=== PATIENT | male | born 1935 | race Caucasian/White ===

== ENCOUNTER 2017-02-05 16:03 | Emergency (ER) | payer OTHER, MEDICARE ==
[~2017-02-05] VITALS: Ht 160 cm; Wt 65.8 kg
--- NOTE | 2017-02-05 16:30 | NUR ---
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 +nausea, -vomiting. resp even unlabored. skin warm nondiaphoretic. VSS. NAD noted. able to answer yes/no questions appropriately. in er bed 10.
[2017-02-05 16:36] LABS: BASOPHILS % (AUTO) 0.4 % (0.0-2.0); EOSINOPHILS % (AUTO) 0.2 % (0.0-6.0); HEMATOCRIT 46 % (39-51); HEMOGLOBIN 15.5 g/dL (13.5-17.5); LYMPHOCYTES % (AUTO) 27.6 % (20.0-44.0); MEAN CORPUSCULAR HEMOGLOBIN 30 PG (26.0-33.0); MEAN CORPUSCULAR HGB CONC 34 g/dl (31.0-36.0); MEAN CORPUSCULAR VOLUME 90 fL (80-96); MONOCYTES # (AUTO) 0.3 /CMM (0.1-1.30); NEUTROPHILS # (AUTO) 2.5 /CMM (1.8-8.9); NEUTROPHILS % (AUTO) 63.8 % (43.0-81.0); PLATELET COUNT (AUTO) 94 /CMM (150-450); RDW COEFFICIENT OF VARIATION 12.8 (11.5-15.0); WHITE BLOOD COUNT (AUTO) 3.8 K/uL (4.3-11.0)
[2017-02-05 16:49] LABS: CALCIUM, SERUM 8.8 mg/dL (8.5-10.1); CREATININE 0.9 mg/dL (0.6-1.3); POTASSIUM 3.6 mmol/L (3.5-5.1)
[2017-02-05] MEDS ORDERED: MORPHINE SULFATE INJ 4 MG/ML DISP.SYRIN ONE (16:51)
[2017-02-05] MEDS ORDERED: IV SET PRIMARY 1 EA INFUS.SET MC ONE (16:51)
[2017-02-05] MEDS ORDERED: ONDANSETRON HCL/PF 4 MG/2 ML VIAL ONE (16:51)
[2017-02-05] MEDS ORDERED: IV NS 0.9% 1,000 ML ONE (16:51)
[2017-02-05 16:52] LABS: INR 1.12 (0.87-1.13); PROTHROMBIN TIME 11.8 SECS (9.5-12.7)
[2017-02-05 16:54] LABS: ALBUMIN 3.8 g/dL (3.4-5.0); BILIRUBIN,DIRECT 0.2 mg/dL (0.0-0.2); BILIRUBIN,TOTAL 0.6 mg/dL (0.2-1.0); TOTAL PROTEIN, SERUM 6.9 g/dL (6.4-8.2)
[2017-02-05] MEDS ORDERED: ONDANSETRON HCL/PF 4 MG/2 ML VIAL IV ONE (17:00)
[2017-02-05] MEDS ORDERED: IOHEXOL-300 100 ML VIAL IV ONE (17:00)
[2017-02-05] MEDS ORDERED: IV NS 0.9% 1,000 ML BAG IV ONE (17:00)
[2017-02-05] MEDS ORDERED: MORPHINE SULFATE INJ 2 MG/ML DISP.SYRIN IV ONE (17:00)
[2017-02-05] MEDS ORDERED: IV NS 0.9% 250 ML IV ONE (17:00)
--- NOTE | 2017-02-05 17:03 | NUR ---
PT TRANSPORTED TO CT IN STABLE CONDITION
[2017-02-05 17:24] LABS: BAND % (MANUAL) 9 % (0.0-5.0); LYMPHOCYTES % (MANUAL) 25 % (16-48); MONOCYTES % (MANUAL) 10 % (0-11.0); NEUTROPHILS % (MANUAL) 56 (42-76); PLATELET ESTIMATE DECREASED
--- NOTE | 2017-02-05 18:26 | NUR ---
pt changed and stool sample collected for c diff amplification. sent to lab.
[2017-02-05 18:28] LABS: APPEARANCE,URINE Clear (CLEAR); BILIRUBIN,URINE SMALL (NEGATIVE); BLOOD, URINE Negative Ery/uL (NEGATIVE); COLOR,URINE Yellow (YELLOW); KETONES,URINE Negative (NEGATIVE); LEUKOCYTE ESTERASE ,URINE Negative (NEGATIVE); NITRITE, URINE Negative (NEGATIVE); PH,URINE 5.5 (5.0-8.0); PROTEIN,URINE Trace mg/dl (NEGATIVE); UGLUCOSE Negative (NEGATIVE)
--- NOTE | 2017-02-05 18:31 | NUR ---
Patient discharged to facility in stable condition. Written and verbal after care instructions given. Patient's ambulatory service representative verbalizes understanding of instruction. IV removed. Catheter intact and site benign. Pressure and 4x4 applied to site. No bleeding noted.
[2017-02-05 18:35] VITALS: BP 128/79
[2017-02-05 18:56] LABS: ADD URINE CULTURE NO; BACTERIA,URINE Rare /HPF (None Seen); RBC,URINE 0-2 /HPF (0-2); SQUAMOUS EPITHELIAL CELL,UR Few /HPF (None Seen); WBC,URINE 0-2 /HPF (0-3)
[2017-02-05 18:57] LABS: MUCUS,URINE Few /LPF (None Seen); URINE AMORPHOUS URATE Few /HPF (None Seen)
== END 2017-02-05 18:37 ==
LOC: ER 16:14
DX: E86.0 Dehydration (principal); R19.7 Diarrhea, unspecified; D69.6 Thrombocytopenia, unspecified; K62.89 Other specified diseases of anus and rectum; R53.1 Weakness; R11.10 Vomiting, unspecified; I10 Essential (primary) hypertension; R10.31 Right lower quadrant pain; R10.32 Left lower quadrant pain; F03.90 Unspecified dementia, unspecified severity, without behavioral disturbance, psychotic disturbance, mood disturbance, and anxiety; Z86.73 Personal history of transient ischemic attack (TIA), and cerebral infarction without residual deficits
CPT/HCPCS: 36415; 80048-TC; 80076-TC; 81000-TC; 83605-TC; 83690-TC; 85025-TC; 85730-TC; 87040-TC; A4606; J2270; J2405; J7030; J7050; Q9967; Z7610

== ENCOUNTER 2017-08-08 16:00 | Inpatient (IN) | payer OTHER, MEDICARE ==
[~2017-08-08] VITALS: Ht 165.1 cm; Wt 68.0 kg
--- NOTE | 2017-08-08 16:18 | NUR ---
the patient was placed on ER 16; no acute distress
[2017-08-08 16:36] LABS: BASOPHILS # (AUTO) 0.2 /CMM (0.0-0.2); BASOPHILS % (AUTO) 3.7 % (0.0-2.0); EOSINOPHILS # (AUTO) 0.1 /CMM (0.0-0.7); EOSINOPHILS % (AUTO) 1.6 % (0.0-6.0); HEMATOCRIT 45 % (39-51); HEMOGLOBIN 14.9 g/dL (13.5-17.5); LYMPHOCYTES # (AUTO) 1.7 /CMM (0.8-4.8); LYMPHOCYTES % (AUTO) 34.8 % (20.0-44.0); MEAN CORPUSCULAR HEMOGLOBIN 31 PG (26.0-33.0); MEAN CORPUSCULAR HGB CONC 33 g/dl (31.0-36.0); MEAN CORPUSCULAR VOLUME 92 fL (80-96); MONOCYTES # (AUTO) 0.4 /CMM (0.1-1.30); MONOCYTES % (AUTO) 7.8 % (2.0-12.0); NEUTROPHILS # (AUTO) 2.4 /CMM (1.8-8.9); NEUTROPHILS % (AUTO) 52.1 % (43.0-81.0); PLATELET COUNT (AUTO) 137 /CMM (150-450); RDW COEFFICIENT OF VARIATION 12.9 (11.5-15.0); RED BLOOD CELL COUNT(AUTO) 4.82 MIL/uL (4.5-6.0); WHITE BLOOD COUNT (AUTO) 4.8 K/uL (4.3-11.0)
[2017-08-08] MEDS ORDERED: ASPI-605 PO (16:43)
[2017-08-08] MEDS ORDERED: ATOR40TA PO (16:43)
[2017-08-08] MEDS ORDERED: LISI-603 PO (16:43)
[2017-08-08] MEDS ORDERED: ESCI10TA PO (16:43)
[2017-08-08 16:45] LABS: CALCIUM, SERUM 8.5 mg/dL (8.5-10.1); CARBON DIOXIDE 29 mmol/L (21-32); CHLORIDE 106 mmol/L (98-107); CREATININE 0.9 mg/dL (0.6-1.3); GLUCOSE 111 mg/dL (74-106); POTASSIUM 4.3 mmol/L (3.5-5.1); SODIUM SERUM 140 mmol/L (136-145); UREA NITROGEN, BLOOD 21 mg/dL (7-18)
--- NOTE | 2017-08-08 17:06 | NUR ---
report given to Therese PILLAI
--- NOTE | 2017-08-08 17:09 | NUR ---
M/S 203
[2017-08-08 17:30] VITALS: BP 135/64
--- NOTE | 2017-08-08 17:30 | NUR ---
MS PILLAI Initial Notes: Patient received from ER per MD orders. Patient Maori speaking, alert oriented x1 with periods of confusion. Patient able to understand Slovenian and answer back. Non-labored breathing noted. No signs of distress. No facial grimacing noted. No signs of anxiety. Vital signs wnl. Patient educated on using the call light. IV site, gauge 20 on right arm patent and intact. Patient refused to have full skin assessment. No lacerations, bruising noted on lower extremities or back. Bed in lowest position and is locked. Call light within reach. Will continue to monitor and follow orders.
[2017-08-08] MEDS ORDERED: DOCU-170 PO (19:21)
[2017-08-08] MEDS ORDERED: QUET25TA PO ×2 (19:21)
--- NOTE | 2017-08-08 19:30 | NUR ---
MS RN Closing Notes: Patient resting in bed. Patient Portuguese speaking, alert oriented x1 with periods of confusion. Patient able to understand Korean and answer back. Non-labored breathing noted. No signs of distress. No facial grimacing noted. No signs of anxiety. Patient educated on using the call light. IV site, gauge 20 on right arm patent and intact. Bed in lowest position and is locked. Call light within reach. Bed alarm on. Patient endorsed to next shift
[2017-08-08 19:39] VITALS: BP 125/74
--- NOTE | 2017-08-09 06:29 | NUR ---
MS RN NOTES AWAKE & RESPONSIVE. NOT IN ANY DISTRESS. NO SOB NOTED. DENIES ANY PAIN OR DISCOMFORT AT THIS TIME. WITH IVF INFUSING WELL. AM CARE DONE. MONITORED ACCORDINGLY. CALL LIGHT WITHIN REACH. BED IN LOWEST POSITION. SR UP X 3 FOR SAFETY WITH BED ALARM ON. WILL ENDORSE TO NEXT SHIFT.
--- NOTE | 2017-08-09 07:30 | NUR ---
MS/RN Patient received Patient received from warehouse supervisor 3rd shift. No needs at this time. Receiving IV fluids at 75ml/hr, no signs of infiltration seen. Call light within reach, will continue to monitor and ensure safety.
[2017-08-09 08:00] VITALS: BP 137/78
--- NOTE | 2017-08-09 09:49 | NUR ---
MS/RN Swallow eval Swallow eval in progress at bedside.
--- NOTE | 2017-08-09 10:58 | NUR ---
MS/RN Speech recommendations Speech therapist recommending soft diet. Order changed and lunch tray ordered.
--- NOTE | 2017-08-09 13:41 | NUR ---
MS/RN Diet Tolerating soft diet, no coughing or signs of aspiration.
[2017-08-09 16:00] VITALS: BP 144/94
--- NOTE | 2017-08-09 18:19 | NUR ---
MS/RN End note Tolerating food and liquids without any signs of aspiration. Ambulating around unit with steady gait. No new needs or concerns expressed. Will continue to monitor and endorse to shift commander.
[2017-08-09 20:00] VITALS: BP 133/94
--- NOTE | 2017-08-10 06:49 | NUR ---
MS RN NOTES AWAKE & RESPONSIVE. NOT IN ANY DISTRESS. NO SOB NOTED. DENIES ANY PAIN OR DISCOMFORT AT THIS TIME. WITH IVF INFUSING WELL. AM CARE DONE. MONITORED ACCORDINGLY. CALL LIGHT WITHIN REACH. BED IN LOWEST POSITION. SR UP X 3 WITH BED ALARM ON FOR SAFETY. WILL ENDORSE TO NEXT SHIFT.
--- NOTE | 2017-08-10 07:30 | NUR ---
MS/RN Patient received Patient received from third shift lieutenant. Ambulating around room, no shortness of breath. All needs attended at this time. Will continue to monitor and ensure safety.
[2017-08-10 08:00] VITALS: BP 129/86
--- NOTE | 2017-08-10 08:15 | NUR ---
MS/RN Medications Morning medications administered as ordered.
[2017-08-10 08:27] VITALS: BP 129/86
--- NOTE | 2017-08-10 08:36 | NUR ---
MS/RN Tolerating diet Patient tolerating diet, no coughing or signs of aspiration.
--- NOTE | 2017-08-10 11:10 | NUR ---
MS/RN S/B Dr Bar Seen by Dr Bar - patient to be discharged back to board and care today.
--- NOTE | 2017-08-10 11:35 | NUR ---
MS/manager of loss prevention operations Karan viera made aware that discharge order is in place for patient.
--- NOTE | 2017-08-10 14:18 | NUR ---
MS/electrical maintenance supervisor Patient discharged back to [facility] in stable condition. Heplock and name bands removed. Exit care completed along with copy of medical record. Education provided to microsoft exchange administrator from facility, including when to return to the nearest emergency room and signs and symptom of aspiration. All personal belongings accounted for and signed off on belongings list. Escorted to main lobby.
== END 2017-08-10 14:24 | disposition home or self-care (01) | DRG 57 ==
LOC: ER 16:03 → MEDSG2 18:27
PROVIDERS: ADMIT Internal Medicine; ATTEND Internal Medicine
DX: I69.891 Dysphagia following other cerebrovascular disease (principal); D69.6 Thrombocytopenia, unspecified; F03.90 Unspecified dementia, unspecified severity, without behavioral disturbance, psychotic disturbance, mood disturbance, and anxiety; I10 Essential (primary) hypertension; R79.89 Other specified abnormal findings of blood chemistry; Z79.899 Other long term (current) drug therapy
CPT/HCPCS: 36415; 70450-TC; 71010-TC; 80048-TC; 85025-TC; 87081-TC; 92611-TC; A4606; J7040; Z7610

== ENCOUNTER 2018-03-30 15:11 | Emergency (ER) | payer MEDICARE, OTHER ==
[~2018-03-30] VITALS: Ht 157.5 cm; Wt 77.1 kg
[~2018-03-30 15:11] MED LIST: ASPI-605 PO; ATOR40TA PO; DOCU100C36 PO; ESCI10TA PO; LISI-603 PO; QUET25TA PO
--- NOTE | 2018-03-30 15:11 | NUR ---
bib caregiver c/o r hip pain and discoloration s/p fell off his bed 1 week -KO
--- NOTE | 2018-03-30 16:11 | NUR ---
[facility] [phone] BOARD AND [facility].
[2018-03-30 16:16] LABS: BASOPHILS % (AUTO) 0.9 % (0.0-2.0); EOSINOPHILS % (AUTO) 1.3 % (0.0-6.0); HEMATOCRIT 37 % (39-51); HEMOGLOBIN 12.8 g/dL (13.5-17.5); LYMPHOCYTES # (AUTO) 1.3 /CMM (0.8-4.8); LYMPHOCYTES % (AUTO) 30.2 % (20.0-44.0); MEAN CORPUSCULAR HGB CONC 35 g/dl (31.0-36.0); MEAN CORPUSCULAR VOLUME 90 fL (80-96); MONOCYTES # (AUTO) 0.3 /CMM (0.1-1.30); MONOCYTES % (AUTO) 7.9 % (2.0-12.0); NEUTROPHILS # (AUTO) 2.7 /CMM (1.8-8.9); NEUTROPHILS % (AUTO) 59.7 % (43.0-81.0); PLATELET COUNT (AUTO) 137 /CMM (150-450); RDW COEFFICIENT OF VARIATION 13.3 (11.5-15.0); RED BLOOD CELL COUNT(AUTO) 4.09 MIL/uL (4.5-6.0); WHITE BLOOD COUNT (AUTO) 4.4 K/uL (4.3-11.0)
[2018-03-30] MEDS ORDERED: GUAI237L83 PO (16:18)
[2018-03-30] MEDS ORDERED: MELA5TAB PO (16:18)
--- NOTE | 2018-03-30 16:31 | NUR ---
PT TAKEN TO CT
[2018-03-30 16:43] LABS: CALCIUM, SERUM 8.3 mg/dL (8.5-10.1); CARBON DIOXIDE 31 mmol/L (21-32); CHLORIDE 104 mmol/L (98-107); CREATININE 0.9 mg/dL (0.6-1.3); GLUCOSE 117 mg/dL (74-106); POTASSIUM 4.2 mmol/L (3.5-5.1); SODIUM SERUM 138 mmol/L (136-145); UREA NITROGEN, BLOOD 20 mg/dL (7-18)
[2018-03-30 16:51] LABS: APPEARANCE,URINE Clear (CLEAR); BILIRUBIN,URINE Negative (NEGATIVE); BLOOD, URINE Negative Ery/uL (NEGATIVE); COLOR,URINE Yellow (YELLOW); KETONES,URINE Negative (NEGATIVE); LEUKOCYTE ESTERASE ,URINE Negative (NEGATIVE); NITRITE, URINE Negative (NEGATIVE); PH,URINE 6.5 (5.0-8.0); PROTEIN,URINE Negative (NEGATIVE); UGLUCOSE Negative (NEGATIVE)
[2018-03-30 16:54] LABS: BACTERIA,URINE Rare /HPF (None Seen); RBC,URINE NONE SEEN /HPF (0-2); SQUAMOUS EPITHELIAL CELL,UR Few /HPF (None Seen); WBC,URINE NONE SEEN /HPF (0-3)
--- NOTE | 2018-03-30 17:44 | NUR ---
CALLED [facility] TO COME APPLIED STATISTICIAN PT, ETA 30 MIN
--- NOTE | 2018-03-30 18:49 | NUR ---
Patient discharged to home in stable condition. Written and verbal after care instructions given. Patient verbalizes understanding of instruction.
[2018-03-30 18:51] VITALS: BP 116/80
== END 2018-03-30 18:52 | disposition home or self-care (01) ==
LOC: ER 15:13
DX: S70.01XA Contusion of right hip, initial encounter (principal); F03.90 Unspecified dementia, unspecified severity, without behavioral disturbance, psychotic disturbance, mood disturbance, and anxiety; F32.9 Major depressive disorder, single episode, unspecified; I10 Essential (primary) hypertension; K59.00 Constipation, unspecified; Z86.73 Personal history of transient ischemic attack (TIA), and cerebral infarction without residual deficits; Z79.82 Long term (current) use of aspirin; W06.XXXA Fall from bed, initial encounter; Y93.89 Activity, other specified; Y92.89 Other specified places as the place of occurrence of the external cause; Y99.8 Other external cause status
CPT/HCPCS: 36415; 73502; 80048-TC; 81000-TC; 85025-TC; 87086-TC; A4606; Z7610

== ENCOUNTER 2019-01-26 13:45 | Inpatient (IN) | payer MEDICARE ==
[~2019-01-26] VITALS: Ht 165.1 cm; Wt 72.2 kg
[~2019-01-26 13:45] MED LIST changes: +GUAI237L83 PO; -LISI-603 PO; +MELA5TAB PO
--- NOTE | 2019-01-26 14:20 | NUR ---
patient presented to the ER from board and care due to frequent falls. On room air, breathing evenly and unlabored. connected to the monitor and pulse ox. kept comfortable, will continue to monitor accordingly.
--- NOTE | 2019-01-26 14:35 | NUR ---
CARMITA BARRERA () VERIFIED DNR CODE STATUS WITH ELIO PILLAI VIA TELEPHONE..
[2019-01-26 14:49] LABS: APPEARANCE,URINE Clear (CLEAR); BILIRUBIN,URINE Negative (NEGATIVE); BLOOD, URINE Moderate Ery/uL (NEGATIVE); COLOR,URINE Yellow (YELLOW); KETONES,URINE Trace (NEGATIVE); LEUKOCYTE ESTERASE ,URINE Negative (NEGATIVE); NITRITE, URINE Negative (NEGATIVE); PROTEIN,URINE 30 mg/dl (NEGATIVE); UGLUCOSE Negative (NEGATIVE); UROBILINOGEN,URINE 0.2 EU/dL (0.2)
[2019-01-26 15:03] LABS: BACTERIA,URINE Few /HPF (None Seen); SQUAMOUS EPITHELIAL CELL,UR Few /HPF (None Seen); WBC,URINE 0-2 /HPF (0-3)
[2019-01-26 15:29] LABS: BASOPHILS % (AUTO) 0.3 % (0.0-2.0); EOSINOPHILS % (AUTO) 0.1 % (0.0-6.0); HEMATOCRIT 43 % (39-51); HEMOGLOBIN 14.3 g/dL (13.5-17.5); LYMPHOCYTES % (AUTO) 14.3 % (20.0-44.0); MEAN CORPUSCULAR HGB CONC 33 g/dl (31.0-36.0); MEAN CORPUSCULAR VOLUME 93 fL (80-96); MONOCYTES # (AUTO) 0.5 /CMM (0.1-1.30); MONOCYTES % (AUTO) 7.4 % (2.0-12.0); NEUTROPHILS # (AUTO) 5.3 /CMM (1.8-8.9); NEUTROPHILS % (AUTO) 77.9 % (43.0-81.0); PLATELET COUNT (AUTO) 104 /CMM (150-450); RED BLOOD CELL COUNT(AUTO) 4.68 MIL/uL (4.5-6.0); WHITE BLOOD COUNT (AUTO) 6.7 K/uL (4.3-11.0)
[2019-01-26] MEDS ORDERED: IV NS 0.9% 1,000 ML BAG IV ONE (15:30)
[2019-01-26 15:38] LABS: ALANINE AMINOTRANSFERASE 32 U/L (12-78); ALBUMIN 3.8 g/dL (3.4-5.0); ALKALINE PHOSPHATASE 75 U/L (46-116); ASPARTATE AMINOTRANSFERASE 35 U/L (15-37); BILIRUBIN,DIRECT 0.2 mg/dL (0.0-0.2); BILIRUBIN,TOTAL 0.7 mg/dL (0.2-1.0); CARBON DIOXIDE 29 mmol/L (21-32); CHLORIDE 104 mmol/L (98-107); CREATININE 0.9 mg/dL (0.6-1.3); GLUCOSE 138 mg/dL (74-106); SODIUM SERUM 137 mmol/L (136-145); UREA NITROGEN, BLOOD 22 mg/dL (7-18)
--- NOTE | 2019-01-26 16:15 | NUR ---
EPIC MICROSTRATEGY ARCHITECT DEVELOPER PAGED VIA ALO BARAJAS
[2019-01-26] MEDS ORDERED: MAGNESIUM HYDROXIDE 30 ML UDC PO PRN (17:00)
[2019-01-26] MEDS ORDERED: MORPHINE SULFATE INJ 2 MG/ML DISP.SYRIN IV PRN (17:00)
[2019-01-26] MEDS ORDERED: HYDROCODONE/APAP 5/325MG 1 EACH TABLET PO PRN (17:00)
[2019-01-26] MEDS ORDERED: ENOXAPARIN SODIUM 40 MG/0.4 ML DISP.SYRIN SQ SCH (17:00)
[2019-01-26] MEDS ORDERED: MAG HYDROX/AL HYDROX/SIMETH 30 ML UDC PO PRN (17:00)
[2019-01-26] MEDS ORDERED: ACETAMINOPHEN 325 MG TABLET PO PRN (17:00)
[2019-01-26] MEDS ORDERED: ONDANSETRON HCL/PF 4 MG/2 ML VIAL IVP PRN (17:00)
[2019-01-26] MEDS ORDERED: Z GUARD REMEDY 2 OZ OINT TP PRN (17:00)
[2019-01-26] MEDS ORDERED: CLONIDINE HCL 0.1 MG TABLET PO PRN (17:30)
--- NOTE | 2019-01-26 18:34 | NUR ---
Spoke to Susan PILLAI for levy.
[2019-01-26 19:00] VITALS: BP 152/81
--- NOTE | 2019-01-26 19:04 | NUR ---
patient wheeled via gurney accompanied by RN and emt in no apparent distress noted. Susan RN at bedside to assume care.
--- NOTE | 2019-01-26 19:06 | NUR ---
SR. MEDIA MANAGERCONTINUOUS WELD PIPE MILL SUPERVISOR NOTES Received Patient from ER at 1850 d/t GROUND LEVEL FALL and c/o LEFT HIP PAIN. Thai speaking. On Tele. A/O x 2, history of dementia. VS taken. BP 152/81 HR 71 RR 18 95% on 2LPM via NC. Weight 159.4lbs per bed scale. Per Patient Height is 5'5". Patient denies pain at this time. IV Heplock on LEFT AC 18g. Telemonitor placed. SR, 77. Patient trying to get out of bed. Safety precautions placed. Bed alarm on. Call light within reach. Will endorse of continuing care plan and computer interventions to oncoming nurse.
[2019-01-26 19:16] VITALS: BP 152/81
--- NOTE | 2019-01-26 20:15 | NUR ---
RN OPENING NOTES RECEIVED PATIENT FROM ROSAS SHAFFER. PATIENT IS AWAKE IN BED. A/O X2. NO FORM OF RESPIRATORY DISTRESS NOTED. NO SIGNS OF SHORTNESS OF BREATH. DENIES PAIN AT THIS TIME. SAFETY PRECAUTIONS IMPLEMENTED. CALL LIGHT WITH REACH. WILL CONTINUE TO MONITOR PATIENT THROUGHOUT THE SHIFT.
[2019-01-26] MEDS: DOCUSATE SODIUM 100 MG CAPSULE PO SCH (20:23)
[2019-01-26] MEDS: QUETIAPINE FUMARATE 25 MG TABLET PO SCH (21:05)
--- NOTE | 2019-01-26 21:12 | NUR ---
RN NOTES TYLENOL GIVEN FOR FEVER. TEMP: 100.2
[2019-01-26] MEDS ORDERED: ATORVASTATIN 40 MG TABLET PO SCH (22:00)
[2019-01-27] VITALS: BP 110/77
[2019-01-27] MEDS: IV NS 0.9% 1,000 ML IV PRN ×2 (00:20→17:49)
[2019-01-27 04:28] VITALS: BP 113/69
[2019-01-27] MEDS: DOCUSATE SODIUM 100 MG CAPSULE PO SCH ×2 (06:29→17:44)
--- NOTE | 2019-01-27 06:40 | NUR ---
RN CLOSING NOTES PATIENT IS RESTING IN BED. PATIENT IS AWAKE IN BED. A/O X2. NO FORM OF RESPIRATORY DISTRESS NOTED. NO SIGNS OF SHORTNESS OF BREATH. SAFETY PRECAUTIONS IMPLEMENTED. SITTER AT THE BEDSIDE. CALL LIGHT WITH REACH. WILL ENDORSE TO ONCOMING AM SHIFT.
[2019-01-27 07:11] LABS: CHOLESTEROL 72 mg/dL (<200); CREATINE KINASE, TOTAL 694 U/L (39-308); HDL CHOLESTEROL 39 mg/dL (40-60); LDL 32 mg/dL (0-99); TRIGLYCERIDES 63 mg/dL (30-150)
[2019-01-27 07:13] LABS: BASOPHILS % (AUTO) 0.2 % (0.0-2.0); EOSINOPHILS % (AUTO) 1.1 % (0.0-6.0); HEMATOCRIT 39 % (39-51); HEMOGLOBIN 13.3 g/dL (13.5-17.5); LYMPHOCYTES # (AUTO) 1.2 /CMM (0.8-4.8); LYMPHOCYTES % (AUTO) 26.1 % (20.0-44.0); MEAN CORPUSCULAR HGB CONC 34 g/dl (31.0-36.0); MEAN CORPUSCULAR VOLUME 92 fL (80-96); MONOCYTES # (AUTO) 0.5 /CMM (0.1-1.30); MONOCYTES % (AUTO) 11.2 % (2.0-12.0); NEUTROPHILS # (AUTO) 2.8 /CMM (1.8-8.9); NEUTROPHILS % (AUTO) 61.4 % (43.0-81.0); PLATELET COUNT (AUTO) 94 /CMM (150-450); WHITE BLOOD COUNT (AUTO) 4.5 K/uL (4.3-11.0)
[2019-01-27 07:16] LABS: ALANINE AMINOTRANSFERASE 27 U/L (12-78); ALBUMIN 3.1 g/dL (3.4-5.0); ALKALINE PHOSPHATASE 54 U/L (46-116); ASPARTATE AMINOTRANSFERASE 32 U/L (15-37); BILIRUBIN,TOTAL 0.9 mg/dL (0.2-1.0); CALCIUM, SERUM 8.1 mg/dL (8.5-10.1); CARBON DIOXIDE 26 mmol/L (21-32); CHLORIDE 108 mmol/L (98-107); CREATININE 0.8 mg/dL (0.6-1.3); GLUCOSE 97 mg/dL (74-106); MAGNESIUM 1.9 mg/dL (1.8-2.4); PHOSPHORUS 2.6 mg/dL (2.5-4.9); POTASSIUM 3.6 mmol/L (3.5-5.1); SODIUM SERUM 141 mmol/L (136-145); TOTAL PROTEIN, SERUM 5.7 g/dL (6.4-8.2); UREA NITROGEN, BLOOD 16 mg/dL (7-18)
[2019-01-27] MEDS ORDERED: GUAIFENESIN/D-METHORPHAN HB 5 ML UDC PO PRN (07:30)
[2019-01-27 08:00] VITALS: BP 119/79
[2019-01-27] MEDS: ASPIRIN EC 81 MG TABLET.DR PO SCH (08:48)
[2019-01-27] MEDS: ESCITALOPRAM OXALATE (10 MG) 10 MG TABLET PO SCH (08:49)
[2019-01-27] MEDS: PANTOPRAZOLE 40 MG TABLET.DR PO SCH (08:49)
--- NOTE | 2019-01-27 18:26 | NUR ---
PT IN STABLE CONDITION. A&O X1, BASELINE. N SOB OR DISTRESS, NO C/O PAIN. ALL CURRENT NEEDS ATTENDED TO. SAFETY PRECAUTIONS IN PLACE: BED LOW, LOCKED, UPPER RAILS UP, AND CALL LIGHT WITHIN REACH.SITTER AT BEDSIDE.
--- NOTE | 2019-01-27 19:31 | NUR ---
RN MS OPENING NOTES RECEIVED PATIENT IN BED AWAKE, ALERT AND ORIENTED X1, VERBALLY RESPONSIVE. CONFUSED. SITTER AT BEDSIDE. BREATHING EVEN AND UNLABORED. NO SOB NOTED. TOLERATING ROOM AIR. NO COMPLAINTS OF PAIN OR DISCOMFORT. NO FACIAL GRIMACING. IV ON RIGHT AC INTACT AND PATENT. SKIN DRY AND WARM TO TOUCH. AFEBRILE. ALL OTHER NEEDS ATTENDED TO. SAFETY MEASURES IN PLACE. CALL LIGHT WITHIN REACH. WILL CONTINUE TO MONITOR.
[2019-01-27 20:00] VITALS: BP 145/83
[2019-01-27] MEDS: ATORVASTATIN 10 MG TABLET PO SCH (21:33)
[2019-01-27] MEDS: QUETIAPINE FUMARATE 25 MG TABLET PO SCH (21:33)
--- NOTE | 2019-01-28 01:18 | NUR ---
MS/RN NOTES RECEIVED REPORT AND PT. FROM ROSAS JOHNSON. PT. IS LYING IN BED RESTING. BREATHING EVEN AND UNLABORED ON 2LPM O2 VIA NC. NO SOB, RESPIRATORY DISTRESS OR COMPLAINTS OF PAIN NOTED AT THIS TIME. PT. WITH RIGHT AC 18 GAUGE PERIPHERAL IV PRESENT, PATENT AND INTACT ADMINISTERING TO PT. NS @ 75 ML/HR. PT. WITH 1:1 SITTER PRESENT AT BEDSIDE. BED LOCKED AND IN LOWEST POSITION, SIDE RAILS UP X3, BED ALARM ON, CALL LIGHT WITHIN REACH, WILL CONTINUE TO MONITOR.
--- NOTE | 2019-01-28 01:19 | NUR ---
RN MS NOTES ALISHA TRANSFERRED TO ROSAS PHILLIPS. PATIENT IN STABLE CONDITION.
--- NOTE | 2019-01-28 06:36 | NUR ---
MS/RN NOTES PT. IS LYING IN BED RESTING. BREATHING EVEN AND UNLABORED ON 2LPM O2 VIA NC. NO SOB, RESPIRATORY DISTRESS OR COMPLAINTS OF PAIN NOTED AT THIS TIME. PT. WITH RIGHT AC 18 GAUGE PERIPHERAL IV PRESENT, PATENT AND INTACT ADMINISTERING TO PT. NS @ 75 ML/HR. PT. WITH 1:1 SITTER PRESENT AT BEDSIDE. ALL PT. NEEDS MET. BED LOCKED AND IN LOWEST POSITION, SIDE RAILS UP X3, BED ALARM ON, CALL LIGHT WITHIN REACH, WILL ENDORSE TO DAYSHIFT NURSE FOR CONTINUITY OF CARE.
[2019-01-28 07:28] LABS: BASOPHILS % (AUTO) 0.4 % (0.0-2.0); EOSINOPHILS % (AUTO) 1.5 % (0.0-6.0); HEMATOCRIT 43 % (39-51); HEMOGLOBIN 14.5 g/dL (13.5-17.5); LYMPHOCYTES # (AUTO) 1.5 /CMM (0.8-4.8); LYMPHOCYTES % (AUTO) 23.3 % (20.0-44.0); MEAN CORPUSCULAR HGB CONC 33 g/dl (31.0-36.0); MEAN CORPUSCULAR VOLUME 93 fL (80-96); MONOCYTES # (AUTO) 0.5 /CMM (0.1-1.30); MONOCYTES % (AUTO) 8.2 % (2.0-12.0); NEUTROPHILS # (AUTO) 4.4 /CMM (1.8-8.9); NEUTROPHILS % (AUTO) 66.6 % (43.0-81.0); PLATELET COUNT (AUTO) 102 /CMM (150-450); RED BLOOD CELL COUNT(AUTO) 4.66 MIL/uL (4.5-6.0); WHITE BLOOD COUNT (AUTO) 6.6 K/uL (4.3-11.0)
--- NOTE | 2019-01-28 07:45 | NUR ---
MS/RN OPENING NOTE PATIENT IN BED IN STABLE CONDITION. A/O X 1, LEBANESE SPEAKING. NO SIGNS OF ACUTE DISTRESS. ON OXYGEN VIA NC AT 2LPM TOLERATING WELL. NO COMPLAIN OF PAIN OR DISCOMFORT. ALL NEEDS ATTENDED TO. 1:1 SITTER AT BEDSIDE. CALL LIGHT WITHIN REACH. WILL CONTINUE TO MONITOR TO ENSURE SAFETY.
[2019-01-28] MEDS: ASPIRIN EC 81 MG TABLET.DR PO SCH (08:33)
[2019-01-28] MEDS: DOCUSATE SODIUM 100 MG CAPSULE PO SCH ×2 (08:33→16:19)
[2019-01-28] MEDS: PANTOPRAZOLE 40 MG TABLET.DR PO SCH (08:33)
[2019-01-28] MEDS: ESCITALOPRAM OXALATE (10 MG) 10 MG TABLET PO SCH (08:33)
[2019-01-28 09:03] VITALS: BP 147/78
[2019-01-28 10:46] LABS: CALCIUM, SERUM 8.2 mg/dL (8.5-10.1); CARBON DIOXIDE 26 mmol/L (21-32); CHLORIDE 106 mmol/L (98-107); CREATININE 0.8 mg/dL (0.6-1.3); GLUCOSE 127 mg/dL (74-106); POTASSIUM 3.7 mmol/L (3.5-5.1); SODIUM SERUM 139 mmol/L (136-145); UREA NITROGEN, BLOOD 13 mg/dL (7-18)
[2019-01-28 10:49] LABS: CREATINE KINASE, TOTAL 471 U/L (39-308)
[2019-01-28] MEDS: IV NS 0.9% 1,000 ML IV PRN (11:33)
[2019-01-28 16:00] VITALS: BP 144/83
--- NOTE | 2019-01-28 18:25 | NUR ---
MS/RN CLOSING NOTE PATIENT IN BED IN STABLE CONDITION. A/O X 1, TRISTANIAN SPEAKING. NO SIGNS OF ACUTE DISTRESS. NO COMPLAIN OF PAIN OR DISCOMFORT. 1:1 SITTER AT BEDSIDE. ALL NEEDS ATTENDED TO. CALL LIGHT WITHIN REACH. WILL ENDORSE TO NEXT SHIFT FOR CONTINUITY OF CARE.
--- NOTE | 2019-01-28 19:59 | NUR ---
RN MS OPENING NOTES RECEIVED PT IN BED, AWAKE ALERT ORIENTED X1, TURKMEN SPEAKING. BREATHING EVEN AND UNLABORED ON ROOM AIR NO COUGH OR CONGESTION NOTED. IV ACCES ON THE L FA 20G WITH NS @75ML/HR. SITTER AT BEDSIDE, BED IN LOWEST LOCKED POSITION, CALL LIGHT WITHIN REACH AT ALL TIME, WILL CONTINUE TO MONITOR.
[2019-01-28 20:00] VITALS: BP 138/79
[2019-01-28] MEDS: ATORVASTATIN 10 MG TABLET PO SCH (22:04)
[2019-01-28] MEDS: QUETIAPINE FUMARATE 25 MG TABLET PO SCH (22:04)
[2019-01-29] MEDS: IV NS 0.9% 1,000 ML IV PRN (04:49)
--- NOTE | 2019-01-29 06:11 | NUR ---
RN MS CLOSING NOTES PT REMAINS IN BED, SLEEPING AROUSES EASILY TO NAME CALL, GREENLANDIC SPEAKING. BREATHING EVEN AND UNLABORED ON ROOM AIR NO COUGH OR CONGESTION NOTED. IV ACCES ON THE L FA 20G WITH NS @75ML/HR. SITTER AT BEDSIDE, BED IN LOWEST LOCKED POSITION, CALL LIGHT WITHIN REACH AT ALL TIME, ALL NEEDS MET DURING SHIFT. WILL ENDORSE TO DAY SHIFT
--- NOTE | 2019-01-29 07:25 | NUR ---
MS/RN - Assessment Patient alert to self, appears comfortable, no apparent distress seen, stable on oxygen at 2lpm via NC. IVF NS at 75 ml/hr infusing well on the LFA with no signs of complications. Skin is intact, pt independent with bed mobility. Sitter at bedside due to pt is a high fall risk. All needs attended. Will continue with current medical management.
[2019-01-29] MEDS: ESCITALOPRAM OXALATE (10 MG) 10 MG TABLET PO SCH (08:15)
[2019-01-29] MEDS: ASPIRIN EC 81 MG TABLET.DR PO SCH (08:15)
[2019-01-29] MEDS: PANTOPRAZOLE 40 MG TABLET.DR PO SCH (08:15)
[2019-01-29] MEDS: DOCUSATE SODIUM 100 MG CAPSULE PO SCH ×2 (08:16→16:47)
--- NOTE | 2019-01-29 17:31 | NUR ---
MS/RN - Discharge Patient alert to self, discharged to [facility] [phone] in stable condition. Reviewed discharge instructions with ROSAS Celestin and she verbalized full understanding and all questions answered to her satisfaction. All belongings with patient. VSS, denies pain, afebrile, tolerating room air, no apparent distress seen. Saline lock removed on the LFA with catheter tip intact, no redness, no swelling at the site. No fall/injury during hospital stay. Patient refused discharge photo, no skin breakdown seen. Discharge papers sent with ambulance crew. Bhavna aware of discharge.
== END 2019-01-29 18:30 | DRG 558 ==
LOC: ER 13:51 → TELE 18:55 → MED 19:02
PROVIDERS: ADMIT Nurse Practitioner Acute Care; ATTEND Nurse Practitioner Acute Care
DX: M62.82 Rhabdomyolysis (principal); R64 Cachexia; S00.03XA Contusion of scalp, initial encounter; E86.0 Dehydration; D69.6 Thrombocytopenia, unspecified; R29.6 Repeated falls; I10 Essential (primary) hypertension; E11.65 Type 2 diabetes mellitus with hyperglycemia; Z86.73 Personal history of transient ischemic attack (TIA), and cerebral infarction without residual deficits; W18.30XA Fall on same level, unspecified, initial encounter; Y92.129 Unspecified place in nursing home as the place of occurrence of the external cause; R26.81 Unsteadiness on feet; F03.90 Unspecified dementia, unspecified severity, without behavioral disturbance, psychotic disturbance, mood disturbance, and anxiety; R13.12 Dysphagia, oropharyngeal phase; M62.84 Sarcopenia; Z91.81 History of falling; Z79.82 Long term (current) use of aspirin
CPT/HCPCS: 36415; 70450-TC; 71045-TC; 72170-TC; 80048-TC; 80053-TC; 80061-TC; 80076-TC; 81000-TC; 82550-TC; 82962-TC; 83605-TC; 83735-TC; 84100-TC; 84484-TC; 85025-TC; 85730-TC; 87040-TC; 87081-TC; 87086-TC; 97110-TC; 97116-TC; 97530-TC; G0378; J2270; J7030